=== PATIENT | female | born 1950 | race Two or more races ===

== ENCOUNTER 2021-08-29 21:09 | Emergency (ER) | payer OTHER ==
[~2021-08-29] VITALS: Ht 170.2 cm; Wt 90.7 kg
[2021-08-29] MEDS ORDERED: HYZAAR 100-251 EACH PO (21:30)
[2021-08-29] MEDS ORDERED: ZITHROMAX500 MG PO (22:51)
== END 2021-08-29 22:52 | disposition home or self-care (01) ==
LOC: ER 21:09
DX: R51.9 Headache, unspecified (principal)

== ENCOUNTER 2022-03-18 18:14 | Emergency (ER) | payer OTHER ==
[~2022-03-18] VITALS: Ht 167.6 cm; Wt 90.7 kg
[~2022-03-18 18:14] MED LIST: HYZAAR 100-251 EACH PO; ZITHROMAX500 MG PO
== END 2022-03-18 22:45 | disposition home or self-care (01) ==
LOC: ER 18:14
DX: U07.1 COVID-19 (principal); R50.9 Fever, unspecified

== ENCOUNTER 2022-03-20 14:00 | Outpatient (CLI) | payer OTHER | END 2022-03-20 15:00 | disposition home or self-care (01) | LOC: ASH CLINIC 14:00 | PROVIDERS: ATTEND Emergency Medicine | DX: U07.1 COVID-19 (principal) ==